=== PATIENT | female | born 1960 | race Caucasian/White ===

== ENCOUNTER → 2016-11-17 | Outpatient (CLI) | payer BC ==
[2016-11-17 08:35] LABS: CHLORIDE,CL 107 mmol/L (98-110); SODIUM,NA 141 mmol/L (136-146)
--- NOTE | 2016-11-17 08:56 | CR ---
EXAMINATION: Two-view chest (PA and Lateral views). HISTORY: Bronchitis. Comparison: 07/16/2016. FINDINGS: The trachea is midline. The cardiomediastinal silhouette is within normal limits. No pulmonary infil trates, effusions or pneumothorax. There is stable linear discoid atelectasis within the left hemith orax. Median sternotomy and postoperative changes again noted. Osseous structures appear unremarkable. IMPRESSION: Stable chest radiograph.
== END ==
LOC: MW.CHIM 07:46
PROVIDERS: ATTEND Internal Medicine
DX: J20.9 Acute bronchitis, unspecified (principal)
CPT/HCPCS: 36415; 71020; 71020-26; 80053; 85025

== ENCOUNTER 2017-04-30 07:01 | Emergency (ER) | payer BC ==
[2017-04-30] MEDS ORDERED: Hyoscyamine 0.125 MG Tab.SL SL ONE (07:21)
[2017-04-30] MEDS ORDERED: Ketorolac 30 MG/ML SDV IVPUSH ONE (07:24)
[2017-04-30] MEDS ORDERED: Ondansetron 4 MG Tab.DIS PO ONE (07:24)
[2017-04-30] MEDS ORDERED: Sodium Chloride 0.9% 1,000 ML IV ONE (07:26)
--- NOTE | 2017-04-30 07:30 | EDM.PDOC ---
ED HPI GENERAL MEDICAL PROBLEM - General Chief Complaint: Genitourinary Problem Stated Complaint: ABDOMINAL PAIN Time Seen by Provider: 04/30/17 07:11 Source of Information: Reports: Patient History Limitations: Reports: No Limitations - History of Present Illness INITIAL COMMENTS - FREE TEXT/NARRATIVE: HISTORY AND PHYSICAL: History of present illness: [49-year-old female on Xarelto for heart valve now presents emergency department complaining of left flank pain radiating to her groin. Patient has nausea but no fevers chills sweats or shaking chills. She's had some red tinged urine today. Her pain is intermittent and sometimes severe now improved. Is not worse with movement nor is it improved with position. Normal bowel habits. Patient states she has been compliant with her anticoagulation with Lovenox. Review of systems: As per history of present illness and below otherwise all systems reviewed and negative. Past medical history: As per history of present illness and as reviewed below otherwise noncontributory. Surgical history: As per history of present illness and as reviewed below otherwise noncontributory. Social history: No reported history of drug or alcohol abuse. Family history: As per history of present illness and as reviewed below otherwise noncontributory. Physical exam: Well. Patient no acute distress. Mild left CVA tenderness abdomen completely benign, vital signs unremarkable no pallor HEENT: Atraumatic, normocephalic, pupils reactive, negative for conjunctival pallor or scleral icterus, mucous membranes moist, throat clear, neck supple, nontender, trachea midline. Lungs: Clear to auscultation, breath sounds equal bilaterally, chest nontender. Heart: S1S2, regular, negative for clicks, rubs, or JVD. Abdomen: Soft, nondistended, nontender. Negative for masses or hepatosplenomegaly. Negative for costovertebral tenderness. Pelvis: Stable nontender. Genitourinary: Deferred. Rectal: Deferred. Extremities: Atraumatic, negative for cords or calf pain. Neurovascular unremarkable. Neuro: Awake, alert, oriented. Cranial nerves II through XII unremarkable. Cerebellum unremarkable. Motor and sensory unremarkable throughout. Exam nonfocal. Diagnostics: [CG with renal cysts as well as 2 mm stone proximal left ureter] Therapeutics: [] Impression: [] Plan: [Signs and symptoms consistent with ureteral colic in patient with very mild gross hematuria. Patient stable on reevaluation. CT shows tumor 2 mm stone proximal left ureter. Urinalysis positive for small amount of gross blood with red tinged urine however it was very watery and not shimon blood in any way. Patient's involvement. 0.9. Case discussed at length with Dr. Lori martinez urologist who is aware the history and findings including patient being anticoagulated on Xarelto for her heart valve, and all CAT scan findings regarding her kidneys. Dr. Campos recommends that it's appropriate to continue the patient's anticoagulation without change to protect her in setting of her heart valve and he feels outpatient follow-up is appropriate with Flomax prescription. She will follow up with him in the office Wednesday or early next week. Patient agrees and is comfortable with outpatient follow-up. She is aware to return immediately for any signs of evolving infectious signs including fever chills sweats or shaking chills. Patient is also aware to return immediately if her hematuria worsens trending towards gross hematuria, if she feels lightheaded or like she might faint, or for any new severe or worsening symptoms. Definitive disposition and diagnosis as appropriate pending reevaluation and review of above. Bilateral Lower Pelvic Pain Score (Numeric/FACES): 9 - Related Data Allergies Allergy/AdvReac Type Severity Reaction Status Date / Time No Known Allergies Allergy Verified 04/30/17 07:14 Home Meds: Home Meds Acetaminophen [Acetaminophen 8 Hour] 650 mg PO Q6HR PRN 07/06/16 [History] Aspirin 81 mg PO DAILY 07/06/16 [History] Flecainide Acetate 50 mg PO Q12HR 07/06/16 [History] Losartan Potassium 25 mg PO DAILY 07/06/16 [History] Metoprolol Succinate 50 mg PO DAILY 07/06/16 [History] Rivaroxaban [Xarelto] 20 mg PO WITHDINNER 07/06/16 [History] Hydrocodone/Acetaminophen [Montague 5-325 Tablet] 1 each PO Q4H PRN #16 tablet [Rx] Past Medical History HEENT History: Reports: None Respiratory History: Reports: None Gastrointestinal History: Reports: None Genitourinary History: Reports: None 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 Musculoskeletal History: Reports: None Neurological History: Reports: None Psychiatric History: Reports: None Endocrine/Metabolic History: Reports: None Hematologic History: Reports: None Immunologic History: Reports: None Oncologic (Cancer) History: Reports: None Dermatologic History: Reports: None - Past Surgical History Cardiovascular Surgical History: Reports: Other (See Below) Female Surgical History: Reports: Tubal Ligation Musculoskeletal Surgical History: Reports: Arthroscopic Knee Social & Family History - Family History Family Medical History: Noncontributory HEENT: Reports: None Cardiac: Reports: None Respiratory: Reports: None GI: Reports: None : Reports: None OBGYN: Reports: None Musculoskeletal: Reports: None Neurological: Reports: None Psychiatric: Reports: None Endocrine/Metabolic: Reports: None Hematologic: Reports: None Immunologic: Reports: None Dermatologic: Reports: None Oncologic: Reports: None - Tobacco Use Smoking Status *Q: Never Smoker Second Hand Smoke Exposure: No - Caffeine Use Caffeine Use: Reports: None - Recreational Drug Use Recreational Drug Use: No ED ROS GENERAL - Review of Systems Review Of Systems: See Below (History of present illness) ED EXAM, GI/ABD - Physical Exam Exam: See Below (History of present illness) Course - Vital Signs Last Recorded V/S: Last Vital Signs Temp 36.3 C 04/30/17 09:02 Pulse 63 04/30/17 10:27 Resp 12 04/30/17 10:27 BP 150/64 H 04/30/17 10:27 Pulse Ox 98 04/30/17 10:27 - Orders/Labs/Meds Orders: Active Orders 24 hr Category Date Time Status Abdomen Pelvis w Cont [CT] Stat Exams 04/30/17 07:20 Taken Peripheral IV Insertion Adult [OM.PC] Stat Oth 04/30/17 07:20 Ordered Labs: Laboratory Tests 04/30/17 04/30/17 04/30/17 Range/Units 07:50 07:52 07:52 WBC 9.59 (4.0-11.0) K/uL RBC 4.43 (4.30-5.90) M/uL Hgb 12.9 (12.0-16.0) g/dL Hct 39.5 (36.0-46.0) % MCV 89.2 (80.0-98.0) fL MCH 29.1 (27.0-32.0) pg MCHC 32.7 (31.0-37.0) g/dL RDW Std Deviation 41.8 (28.0-62.0) fl RDW Coeff of Ranjan 13 (11.0-15.0) % Plt Count 225 (150-400) K/uL MPV 9.70 (7.40-12.00) fL Neut % (Auto) 83.2 H (48.0-80.0) % Lymph % (Auto) 11.1 L (16.0-40.0) % [place] % (Auto) 4.5 (0.0-15.0) % Eos % (Auto) 0.9 (0.0-7.0) % Baso % (Auto) 0.3 (0.0-1.5) % Neut # (Auto) 8.0 H (1.4-5.7) K/uL Lymph # (Auto) 1.1 (0.6-2.4) K/uL [place] # (Auto) 0.4 (0.0-0.8) K/uL Eos # (Auto) 0.1 (0.0-0.7) K/uL Baso # (Auto) 0.0 (0.0-0.1) K/uL Nucleated RBC % 0.0 /100WBC Nucleated RBCs # 0 K/uL Sodium 139 (136-146) mmol/L Potassium 4.1 (3.5-5.1) mmol/L Chloride 105 (98-110) mmol/L Carbon Dioxide 24 (21-31) mmol/L BUN 18 (6.0-23.0) mg/dL Creatinine 0.9 (0.6-1.5) mg/dL Est Cr Clr Drug Dosing 63.78 mL/min Estimated GFR (MDRD) > 60.0 ml/min Glucose 144 H (60-110) mg/dL Calcium 9.4 (8.8-10.8) mg/dL Total Bilirubin 0.3 (0.1-1.5) mg/dL AST 14 (5-40) IU/L ALT 13 (8-54) IU/L Alkaline Phosphatase 79 (40-150) Total Protein 7.8 (6.0-8.0) g/dL Albumin 4.3 (3.5-5.0) g/dL Globulin 3.5 (2.0-3.5) g/dL Albumin/Globulin Ratio 1.2 L (1.3-2.8) Lipase 10 (7-80) U/L Urine Color RED Urine Appearance SLT CLOUDY Urine pH 5.5 (5.0-8.0) Ur Specific [place] 1.015 (1.001-1.035) Urine Protein NEGATIVE (NEGATIVE) mg/dL Urine Glucose (UA) NEGATIVE (NEGATIVE) mg/dL Urine Ketones NEGATIVE (NEGATIVE) mg/dL Urine Occult Blood LARGE H (NEGATIVE) Urine Nitrite NEGATIVE (NEGATIVE) Urine Bilirubin NEGATIVE (NEGATIVE) Urine Urobilinogen 0.2 (<2.0) EU/dL Ur Leukocyte Esterase NEGATIVE (NEGATIVE) Urine RBC TOO NUMBEROUS TO CT H (0-2/HPF) Urine WBC 1-2 (0-5/HPF) Ur Epithelial Cells RARE (NONE-FEW) Urine Bacteria RARE (NEGATIVE) Meds: Medications Discontinued Medications Generic Name Dose Route Start Last Admin Trade Name Freq PRN Reason Stop Dose Admin Hyoscyamine 0.125 mg 04/30/17 07:21 04/30/17 07:38 Hyomax-Sl SL 04/30/17 07:22 0.125 mg ONETIME ONE Administration Sodium Chloride 1,000 mls @ 999 mls/hr 04/30/17 07:26 04/30/17 07:51 Normal Saline IV 04/30/17 08:26 999 mls/hr STAT ONE Administration Iopamidol 100 ml 04/30/17 08:56 04/30/17 08:56 Isovue Multipack-370 (76%) IVPUSH 04/30/17 08:57 100 ml ONETIME STA Administration Ketorolac Tromethamine 30 mg 04/30/17 07:24 04/30/17 07:45 Toradol IVPUSH 04/30/17 07:25 30 mg ONETIME ONE Administration Ondansetron HCl 4 mg 04/30/17 07:24 04/30/17 07:38 Zofran Odt PO 04/30/17 07:25 4 mg ONETIME ONE Administration Departure - Departure Time of Disposition: 10:41 Disposition: Home, Self-Care 01 Condition: Good Clinical Impression: Gross hematuria, Left ureteral stone, Ureteral colic - Discharge Information Prescriptions: Hydrocodone/Acetaminophen [Montague 5-325 Tablet] 1 each PO Q4H PRN #16 tablet PRN Reason: Breakthrough pain Instructions: Kidney Stones, [id number] Referrals: Tomas Oh MD [Primary Care Provider] - Forms: ED Department Discharge Additional Instructions: You have a 2 mm stone in your left ureter. It is likely that this will intermittently cause pain likely of varying intensity until it passes into your bladder. Take Flomax once a day as directed until you pass the stone. Take [place] one by mouth every 6 hours as needed for pain. You also have gross hematuria as discussed. Again, "gross "hematuria means your urine is red from mild bleeding. As we discussed this is concerning because you were on Xarelto but at this point Dr. Campos the urologist feels it's appropriate to continue her anticoagulation therapy as you're blood in the urine is very dilute in your hemoglobin is unremarkable at 12.9. Follow-up with Dr. Campos on Wednesday. Follow -up with your DrKrupa in one day as well. Return immediately for new severe or worsening symptoms specifically for uncontrolled pain, uncontrolled vomiting, worsening discomfort especially in the setting of fevers, or worsening bleeding , especially with lightheadedness or feeling like he might faint. - My Orders Last 24 Hours: My Active Orders 04/30/17 07:20 Abdomen Pelvis w Cont [CT] Stat Peripheral IV Insertion Adult [OM.PC] Stat - Assessment/Plan Last 24 Hours: My Active Orders 04/30/17 07:20 Abdomen Pelvis w Cont [CT] Stat Peripheral IV Insertion Adult [OM.PC] Stat
[2017-04-30 08:24] LABS: CHLORIDE,CL 105 mmol/L (98-110); SODIUM,NA 139 mmol/L (136-146)
[2017-04-30] MEDS ORDERED: Iopamidol 755 MG/ML 500 ML Multipack Bottle IVPUSH STA (08:56)
[2017-04-30 10:54] VITALS: BP 144/54
--- NOTE | 2017-04-30 11:05 | CT ---
EXAM DATE: 04/30/17 PATIENT'S AGE: 57 Patient: KIKE RINCON Facility: [place], [place] Site . Site : 1960 Study: CT Abdomen/Pelvis [id number]/29/2017 9:09:14 AM Ordering Physician: Dejon Vences Final Report: INDICATION: Lower abdominal pain. TECHNIQUE: Contiguous axial images were acquired through the abdomen and pelvis after the intravenous administration of 100 mL of Isovue. Sagittal and coronal reconstructions. COMPARISON: CT from April 02, 2013. FINDINGS: Visualized lower chest: Prior median sternotomy. Heart size is within normal limits. No pericardial effusion. Lung bases are clear. Bilateral breast implants. Abdomen and pelvis: The liver is unremarkable. Cholecystectomy. No significant bile duct dilatation. Normal size spleen. Pancreas is normal. No adrenal nodule or mass. There are bilateral parapelvic renal cysts, left more than right. There is a 2 mm intrarenal stone on the left on axial image 54. In the proximal left ureter on axial image 86, there is a 2 mm stone which results in hydronephrosis, the degree of which is difficult to determine the size and number of parapelvic cysts. There is asymmetric renal function with slightly diminished enhancement of the left kidney compared to the right, and mild perinephric fat stranding. Normal caliber abdominal aorta. No abnormally dilated bowel to suggest obstruction and no abnormal bowel wall thickening. Normal appendix. No free air. Unremarkable urinary bladder. Uterus is present. No adnexal mass. Bones: No acute abnormality. Degenerative changes are seen at the lumbosacral junction. IMPRESSION: 1. There is a 2 mm stone seen in the proximal left ureter with obstructive uropathy as described above. 2. Other findings as noted. Dictated by Jerry Schultz MD @ 04/30/2017 9:29:27 AM Dictated by: Jerry Schultz MD @ 04/30/2017 09:29:42 (Electronic Signature) Report Signed by Proxy. [facility] C[facility]ERSa[facility]
== END 2017-04-30 11:00 | disposition home or self-care (01) ==
LOC: MW.ED 07:01
DX: N13.2 Hydronephrosis with renal and ureteral calculous obstruction (principal); R31.0 Gross hematuria; Z98.51 Tubal ligation status; Z79.82 Long term (current) use of aspirin; Z79.899 Other long term (current) drug therapy
CPT/HCPCS: 36415; 74177; 80053; 81001; 83690; 85025; 96361; 96374; 99284; A9270; J1885; J7040; Q9967; 99283

== ENCOUNTER 2018-12-10 19:49 | Emergency (ER) | payer BC ==
[2018-12-10] MEDS ORDERED: Gelatin Sponge,Absorbable 12-7 mm Sponge TOP ONE (19:50)
--- NOTE | 2018-12-10 20:13 | EDM.PDOC ---
ED HPI GENERAL MEDICAL PROBLEM - General Chief Complaint: Skin Complaint Stated Complaint: SKIN TAG ON BACK Time Seen by Provider: 12/10/18 20:03 - History of Present Illness INITIAL COMMENTS - FREE TEXT/NARRATIVE: HISTORY AND PHYSICAL: History of present illness: The patient is a 58-year-old female with a history of hypertension and a cardiac arrhythmia for which she takes Xarelto and presents after she scratched a skin tag on her right flank area and made it bleed and she has not been able to get it to stop. She has no systemic complaints of fever chills chest pain shortness of breath abdominal pain and was having a great day at her grandson's birthday democrat when this occurred. Her tried to clean it up and place a dressing on it but he keeps bleeding. She is not having bleeding in other locations such as in her urine stools comes Review of systems: As per history of present illness and below otherwise all systems reviewed and negative. Past medical history: As per history of present illness and as reviewed below otherwise noncontributory. Surgical history: As per history of present illness and as reviewed below otherwise noncontributory. Social history: No reported history of drug or alcohol abuse. Family history: As per history of present illness and as reviewed below otherwise noncontributory. Physical exam: HEENT: Atraumatic, normocephalic, negative for conjunctival pallor or scleral icterus, mucous membranes moist, throat clear, neck supple, nontender, trachea midline. Lungs: Clear to auscultation, breath sounds equal bilaterally, chest nontender. Heart: S1S2, regular rate and rhythm no overt murmurs Abdomen: Soft, nondistended, nontender. NABS Pelvis: Deferred Genitourinary: Deferred. Rectal: Deferred. Extremities: Atraumatic, negative for cords or calf pain. Neurovascular unremarkable. Neuro: Awake, alert, oriented. Cranial nerves II through XII unremarkable. Cerebellum unremarkable. Motor and sensory unremarkable throughout. Exam nonfocal. Skin: Turgor is normal and there are no overt rashes or lesions. At the right flank area just inferior to the posterior ribs there is a small 1 cm area of skin excoriation with a punctate area of oozing. There is no soft tissue swelling ecchymosis or erythema and there is no tenderness. Diagnostics: [] Therapeutics: Surgicel and pressure dressing per nursing Impression: Skin lesion bleeding with history of Xarelto use stable Definitive disposition and diagnosis as appropriate pending reevaluation and review of above. - Related Data Allergies Allergy/AdvReac Type Severity Reaction Status Date / Time No Known Allergies Allergy Verified 04/30/17 07:14 Home Meds: Home Meds Aspirin 81 mg PO DAILY 07/06/16 [History] Flecainide Acetate 50 mg PO Q12HR 07/06/16 [History] Losartan Potassium 25 mg PO DAILY 07/06/16 [History] Metoprolol Succinate 50 mg PO DAILY 07/06/16 [History] Rivaroxaban [Xarelto] 20 mg PO WITHDINNER 07/06/16 [History] Past Medical History HEENT History: Reports: None Cardiovascular History: Reports: Afib, Hypertension Respiratory History: Reports: None Gastrointestinal History: Reports: None Genitourinary History: Reports: None 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 Musculoskeletal History: Reports: None Neurological History: Reports: None Psychiatric History: Reports: None Endocrine/Metabolic History: Reports: Obesity/BMI 30+ Hematologic History: Reports: None Immunologic History: Reports: None Oncologic (Cancer) History: Reports: None Dermatologic History: Reports: None - Infectious Disease History Infectious Disease History: Reports: Chicken Pox - Past Surgical History Head Surgeries/Procedures: Reports: None Cardiovascular Surgical History: Reports: Cardiac Ablation, Coronary Artery Bypass Female Surgical History: Reports: Tubal Ligation Musculoskeletal Surgical History: Reports: Arthroscopic Knee Social & Family History - Family History Family Medical History: Noncontributory HEENT: Reports: None Cardiac: Reports: None Respiratory: Reports: None GI: Reports: None : Reports: None OBGYN: Reports: None Musculoskeletal: Reports: None Neurological: Reports: None Psychiatric: Reports: None Endocrine/Metabolic: Reports: None Hematologic: Reports: None Immunologic: Reports: None Dermatologic: Reports: None Oncologic: Reports: None - Tobacco Use Smoking Status *Q: Never Smoker - Caffeine Use Caffeine Use: Reports: None - Recreational Drug Use Recreational Drug Use: No ED ROS GENERAL - Review of Systems Review Of Systems: ROS reveals no pertinent complaints other than HPI. ED EXAM, SKIN/RASH Exam: See Below (See dictation) Course - Vital Signs Last Recorded V/S: Last Vital Signs Temp 35.9 C 12/10/18 19:51 Pulse 74 12/10/18 19:51 Resp 18 12/10/18 19:51 BP 199/76 H 12/10/18 19:51 Pulse Ox 94 L 12/10/18 19:51 - Orders/Labs/Meds Orders: Active Orders 24 hr Category Date Time Status Communication Order [RC] STAT Care 12/10/18 20:09 Ordered Departure - Departure Time of Disposition: 20:12 Disposition: Home, Self-Care 01 Condition: Good Clinical Impression: Skin lesion of back - Discharge Information Referrals: Tomas Oh MD [Primary Care Provider] - Additional Instructions: The following information is given to patients seen in the emergency department who are being discharged to home. This information is to outline your options for follow-up care. We provide all patients seen in our emergency department with a follow-up referral. The need for follow-up, as well as the timing and circumstances, are variable depending upon the specifics of your emergency department visit. If you don't have a primary care physician on staff, we will provide you with a referral. We always advise you to contact your personal physician following an emergency department visit to inform them of the circumstance of the visit and for follow-up with them and/or the need for any referrals to a consulting specialist. The emergency department will also refer you to a specialist when appropriate. This referral assures that you have the opportunity for followup care with a specialist. All of these measure are taken in an effort to provide you with optimal care, which includes your followup. Under all circumstances we always encourage you to contact your private physician who remains a resource for coordinating your care. When calling for followup care, please make the office aware that this follow-up is from your recent emergency room visit. If for any reason you are refused follow-up, please contact the [facility] emergency department at and ask to speak to the emergency department charge nurse. [facility] Primary care- Internal Medicine and Family [address] [address] Leave the dressing that was placed on by nursing for the next 24-36 hours then remove. Please continue with her home medications and follow-up with a provider in the clinic. Return to ER as needed and as discussed - My Orders Last 24 Hours: My Active Orders 12/10/18 20:09 Communication Order [RC] STAT - Assessment/Plan Last 24 Hours: My Active Orders 12/10/18 20:09 Communication Order [RC] STAT
[2018-12-10 20:52] VITALS: BP 170/72
== END 2018-12-10 20:35 | disposition home or self-care (01) ==
LOC: MW.ED 19:49
DX: L98.9 Disorder of the skin and subcutaneous tissue, unspecified (principal); I48.91 Unspecified atrial fibrillation; I10 Essential (primary) hypertension; Z79.01 Long term (current) use of anticoagulants; Z79.899 Other long term (current) drug therapy
CPT/HCPCS: 99283

== ENCOUNTER 2020-07-13 08:32 | Emergency (ER) | payer BC ==
--- NOTE | 2020-07-13 08:33 | EDM.PDOC ---
ED HPI GENERAL MEDICAL PROBLEM - General Stated Complaint: BP HEADACHE Time Seen by Provider: 07/13/20 08:32 Source of Information: Reports: Patient History Limitations: Reports: No Limitations - History of Present Illness INITIAL COMMENTS - FREE TEXT/NARRATIVE: 60-year-old female past medical history hypertension, heart valve repair on Xarelto, kidney stones presents for concern for high blood pressure. Patient notes that for the last week she has been checking her blood pressure at home and it has been high. She cannot recall the top number but notes that the bottom number has been 103, 105. She notes that when she went to the dentist she was told that her blood pressure was high and she should follow-up with your primary care physician. Patient also notes a dull headache for the last 3 days. She denies sudden onset headache, worst headache of life, thunderclap onset. She denies any one-sided body weakness, generalized weakness, changes in vision, numbness or tingling, slurred speech, difficulty with word finding. She notes that she recently saw her physician that manages her heart valve repair in [place] and had blood work and an EKG which were all normal. She denies any ch est pain, shortness of breath, changes in urinary habits. headache Pain Score (Numeric/FACES): 4 - Related Data Allergies Allergy/AdvReac Type Severity Reaction Status Date / Time No Known Allergies Allergy Verified 07/13/20 08:49 Home Meds: Home Meds Aspirin 81 mg PO DAILY 07/06/16 [History] Flecainide Acetate 50 mg PO Q12HR 07/06/16 [History] Losartan Potassium 25 mg PO DAILY 07/06/16 [History] Metoprolol Succinate 50 mg PO DAILY 07/06/16 [History] Rivaroxaban [Xarelto] 20 mg PO WITHDINNER 07/06/16 [History] Past Medical History HEENT History: Reports: None Cardiovascular History: Reports: Afib, Hypertension Respiratory History: Reports: None Gastrointestinal History: Reports: None Genitourinary History: Reports: None INSIDE SALES MANAGER History: Reports: None Other INSIDE SALES MANAGER History: Tubal Ligation Musculoskeletal History: Reports: None Neurological History: Reports: None Psychiatric History: Reports: None Endocrine/Metabolic History: Reports: Obesity/BMI 30+ Hematologic History: Reports: None Immunologic History: Reports: None Oncologic (Cancer) History: Reports: None Dermatologic History: Reports: None - Infectious Disease History Infectious Disease History: Reports: Chicken Pox - Past Surgical History Head Surgeries/Procedures: Reports: None Cardiovascular Surgical History: Reports: Cardiac Ablation, Coronary Artery Bypass Female Surgical History: Reports: Tubal Ligation Musculoskeletal Surgical History: Reports: Arthroscopic Knee Social & Family History - Family History Family Medical History: No Pertinent Family History HEENT: Reports: None Cardiac: Reports: None Respiratory: Reports: None GI: Reports: None : Reports: None OBGYN: Reports: None Musculoskeletal: Reports: None Neurological: Reports: None Psychiatric: Reports: None Endocrine/Metabolic: Reports: None Hematologic: Reports: None Immunologic: Reports: None Dermatologic: Reports: None Oncologic: Reports: None - Caffeine Use Caffeine Use: Reports: None ED ROS GENERAL - Review of Systems Review Of Systems: Comprehensive ROS is negative, except as noted in HPI. ED EXAM, GENERAL - Physical Exam Exam: See Below Exam Limited By: No Limitations General Appearance: Alert, WD/WN, No Apparent Distress Eye Exam: Bilateral Eye: EOMI, PERRL Ears: Normal External Exam Nose: Normal Inspection Throat/Mouth: Normal Voice, No Airway Compromise Head: Atraumatic, Normocephalic Neck: Normal Inspection Respiratory/Chest: No Respiratory Distress, Lungs Clear, Normal Breath Sounds, No Accessory Muscle Use Cardiovascular: Normal Peripheral Pulses, Regular Rate, Rhythm, No Edema Extremities: Normal Inspection Neurological: Alert, Oriented, CN II-XII Intact, Normal Cognition, Normal Gait, No Motor/Sensory Deficits Psychiatric: Normal Affect, Normal Mood Skin Exam: Warm, Dry, Intact, Normal Color Course - Vital Signs Last Recorded V/S: Last Vital Signs Temp 96.7 F L 07/13/20 08:38 Pulse 74 07/13/20 08:38 Resp 17 07/13/20 08:38 BP 187/73 H 07/13/20 08:38 Pulse Ox 95 07/13/20 08:38 - Orders/Labs/Meds Orders: Active Orders 24 hr Category Date Time Status cloNIDine [Catapres] Med 07/13/20 08:54 Once 0.1 mg PO ONETIME ONE - Re-Assessments/Exams Free Text/Narrative Re-Assessment/Exam: 07/13/20 08:57 Suspicion for intracranial hemorrhage, stroke, renal dysfunction is very low. I did offer the patient blood work to check renal function as well as an EKG, but she declined considering she just had these test performed roughly 1 week ago. Will give clonidine 0.1 mg to see if it helps with patient's headache. She already took Tylenol. Patient has good follow-up with a primary care physician who she states she can see next week. I explained to patient that while her blood pressure is elevated, I think she would be better served following up with her primary care physician who can follow-up and institute a new medication regimen. I explained the clonidine is today just to get her blood pressure temporarily down to see if it helps with her headache but is not a good long- term option for managing blood pressure in this patient. I explained return precautions at length including a blood pressure greater than 220 systolic or 120 diastolic. Return precautions also include sudden onset headache, chest pain, shortness of breath, decreased urination, and anuria. Departure - Departure Time of Disposition: 08:58 Disposition: Home, Self-Care 01 Condition: Good Clinical Impression: Hypertension Qualifiers: Hypertension type: essential hypertension Qualified Code(s): I10 - Essential (primary) hypertension - Discharge Information Instructions: Hypertension, Adult, Preventing Hypertension Additional Instructions: Your blood pressure today was 187/73. Normal blood pressure is 120/80. Acceptable but high blood pressure is 130/85. Do note that blood pressure noa nges dynamically throughout the day depending on what you are doing, your stress level, any caffeine or stimulant use, alcohol use, salt intake, diet, physical activity. I recommend that you follow-up with your primary care physician to discuss your high blood pressure. I would keep a log of your blood pressure over the next several days taking it when you are relaxed and before having any coffee or caffeine. Ideally he could take your blood pressure once in the morning, once in the afternoon, and once before bed. This will give your primary care physician an idea of what your blood pressure is doing throughout the day. If you develop chest pain, difficulty breathing, thunderclap onset headache (sudden onset worst headache of life), changes in your vision, slurred speech, difficulty finding her words, difficulty moving one half of your body you should return to the emergency department immediately as these can be signs of serious illness. The following information is given to patients seen in the emergency department who are being discharged to home. This information is to outline your options for follow-up care. We provide all patients seen in our emergency department with a follow-up referral. The need for follow-up, as well as the timing and circumstances, are variable depending upon the specifics of your emergency department visit. If you don't have a primary care physician on staff, we will provide you with a referral. We always advise you to contact your personal physician following an emergency department visit to inform them of the circumstance of the visit and for follow-up with them and/or the need for any referrals to a consulting specialist. The emergency department will also refer you to a specialist when appropriate. This referral assures that you have the opportunity for follow-up care with a specialist. All of these measure are taken in an effort to provide you with optimal care, which includes your follow-up. Under all circumstances we always encourage you to contact your private physician who remains a resource for coordinating your care. When calling for follow-up care, please make the office aware that this follow-up is from your recent emergency room visit. If for any reason you are refused follow-up, please contact the [facility] Emergency Department at and asked to speak to the emergency department charge nurse. Please follow up with your primary care physician. If you do not have a primary care physician, see below: [facility] [address] [place] [id number] [facility] [address] [place] [id number] Sepsis Event Note (ED) - Focused Exam Vital Signs: Vital Signs Temp Pulse Resp BP Pulse Ox 07/13/20 08:38 96.7 F L 74 17 187/73 H 95 - My Orders Last 24 Hours: My Active Orders 07/13/20 08:54 cloNIDine [Catapres] 0.1 mg PO ONETIME ONE - Assessment/Plan Last 24 Hours: My Active Orders 07/13/20 08:54 cloNIDine [Catapres] 0.1 mg PO ONETIME ONE
[2020-07-13] MEDS ORDERED: cloNIDine 0.1 MG Tab PO ONE (08:54)
[2020-07-13 09:31] VITALS: BP 172/65; PULSE 62
== END 2020-07-13 09:39 | disposition home or self-care (01) ==
LOC: MW.ED 08:32
DX: I10 Essential (primary) hypertension (principal); I48.91 Unspecified atrial fibrillation; E66.9 Obesity, unspecified; Z68.41 Body mass index [BMI] 40.0-44.9, adult; Z79.01 Long term (current) use of anticoagulants; Z79.899 Other long term (current) drug therapy; Z79.82 Long term (current) use of aspirin
CPT/HCPCS: 99283; A9270

== ENCOUNTER 2021-07-13 17:44 | Emergency (ER) | payer BC ==
--- NOTE | 2021-07-13 18:47 | EDM.PDOC ---
ED HPI GENERAL MEDICAL PROBLEM - General Chief Complaint: Respiratory Problem Stated Complaint: COUGH Time Seen by Provider: 07/13/21 18:18 Source of Information: Reports: Patient History Limitations: Reports: No Limitations - History of Present Illness INITIAL COMMENTS - FREE TEXT/NARRATIVE: HISTORY AND PHYSICAL: History of present illness: Patient is a 61-year-old female who presents to the emergency room with complaints of cough x 2 weeks. States she is producing thick yellow sputum. Patient denies any fever, chills, headache, change in vision, syncope or near syncope. Denies any chest pain, back pain, or shortness of breath. Denies any GI or symptoms. No recent travel or sick contacts. Review of systems: As per history of present illness and below otherwise all systems reviewed and negative. Past medical history: As per history of present illness and as reviewed below otherwise noncontributory. Surgical history: As per history of present illness and as reviewed below otherwise noncontributory. Social history: See social history for further information Family history: As per history of present illness and as reviewed below otherwise noncontributo ry. Physical exam: General: Well developed and well nourished 61 year old female. Alert and orientated x 3. Nontoxic in appearance and in no acute distress. Vital signs are stable and have been reviewed by me. Nursing notes were reviewed. HEENT: Atraumatic, normocephalic, pupils equal and reactive bilaterally, negative for conjunctival pallor or scleral icterus, mucous membranes moist, TMs normal bilaterally, throat clear, neck supple, nontender, trachea midline. No drooling or trismus noted. No meningeal signs. No hot potato voice noted. Lungs: Diminished to auscultation bilaterally. No wheezes, rales, or rhonchi. Chest nontender. Normal work of breathing, no accessory muscles used. Heart: S1S2, regular rate and rhythm without overt murmur, gallops, or rubs. No JVD. No peripheral edema Abdomen: Soft, nondistended, nontender. Skin: Intact, warm, dry. No lesions or rashes noted. Hematologic: No petechiae or purpra. Mucosa appropriate color and normal nail bed color and refill. Extremities: Atraumatic, moves all extremities per self without difficulty or deficits, negative for cords or calf pain. Neurovascular unremarkable. Neuro: Awake, alert, oriented. Cranial nerves II through XII unremarkable. Cerebellum unremarkable. Motor and sensory unremarkable throughout. Exam nonfocal. Psychiatric: Mood and affect are appropriate. Normal thought process. Answering questions appropriately. Please note that the patient was seen and evaluated during the 2019 SARS-CoV-2 novel coronavirus pandemic period. Community viral transmission is ongoing at time of this encounter and the emergency department is operating under pandemic response procedures. Medical Decision Making: Negative COVID-19 and influenza screening. Chest x-ray shows no acute cardiopulmonary abnormality. Stable mild cardiomegaly. Reviewing the chest x- ray myself it does look hazy in the left lower lobe, unable to see costovertebral angles. CURB-65: Low risk group. due to length of symptoms I am going to treat with doxycycline. And provide proair inhaler with education and spacer. I have talked with the patient about today's findings, in addition to providing specific details for plan of care. Reassessment at the time of disposition demonstrates that the patient is in no acute distress. The patient is stable for discharge, counseling was provided and we discussed in great detail signs and symptoms that would prompt them to return to the Emergency Department. Medication, follow up and supportive care measures were reviewed and discussed. Voices understanding and is agreeable to plan of care. Denies any further questions or concerns at this time. Diagnostics: Chest x-ray, COVID-19/influenza Therapeutics: Doxycycline Prescription: Doxycycline Impression: Bronchitis Plan: 1. You were evaluated today on an emergent basis. Your COVID and influenza screening are negative. Chest x-ray looks like you have an early pneumonia in the left lower lobe. Take the antibiotic as prescribed. If your symptoms should worsen, new symptoms develop or any of the signs and symptoms we discussed should arise please return to the emergency room or call 911 (if needed). 2. You can alternate Tylenol and ibuprofen as needed for pain and fever management. 3. We encourage you to follow up with your primary care provider and/or recommended specialist in the next few days for re-evaluation and further care/management. Definitive disposition and diagnosis as appropriate pending reevaluation and review of above. - Related Data Allergies Allergy/AdvReac Type Severity Reaction Status Date / Time No Known Allergies Allergy Verified 07/13/20 08:49 Home Meds: Home Meds Aspirin 81 mg PO DAILY 07/06/16 [History] Flecainide Acetate 150 PO Q12HR 07/06/16 [History] Losartan Potassium 50 mg PO DAILY 07/06/16 [History] Metoprolol Succinate 50 mg PO DAILY 07/06/16 [History] Rivaroxaban [Xarelto] 20 mg PO WITHDINNER 07/06/16 [History] Doxycycline [Vibra-Tabs] 100 mg PO BID 7 Days #14 tab 07/13/21 [Rx] predniSONE [Prednisone] 40 mg PO DAILY 4 Days #8 tablet 07/13/21 [Rx] Past Medical History HEENT History: Reports: None Cardiovascular History: Reports: Afib, Hypertension Respiratory History: Reports: None Gastrointestinal History: Reports: None Genitourinary History: Reports: None AD TRAFFICKER History: Reports: None Other AD TRAFFICKER History: Tubal Ligation Musculoskeletal History: Reports: None Neurological History: Reports: None, Other (See Below) Other Neuro History: "couple of strokes" Psychiatric History: Reports: None Endocrine/Metabolic History: Reports: Obesity/BMI 30+ Hematologic History: Reports: None Immunologic History: Reports: None Oncologic (Cancer) History: Reports: None Dermatologic History: Reports: None - Infectious Disease History Infectious Disease History: Reports: Chicken Pox - Past Surgical History Head Surgeries/Procedures: Reports: None HEENT Surgical History: Reports: None Cardiovascular Surgical History: Reports: Cardiac Ablation, Coronary Artery Bypass Other Cardiovascular Surgeries/Procedures: Valve repair GI Surgical History: Reports: Cholecystectomy Female Surgical History: Reports: Tubal Ligation Endocrine Surgical History: Reports: None Neurological Surgical History: Reports: None Musculoskeletal Surgical History: Reports: Arthroscopic Knee Oncologic Surgical History: Reports: None Dermatological Surgical History: Reports: None Social & Family History - Family History Family Medical History: No Pertinent Family History HEENT: Reports: None Cardiac: Reports: None Respiratory: Reports: None GI: Reports: None : Reports: None OBGYN: Reports: None Musculoskeletal: Reports: None Neurological: Reports: None Psychiatric: Reports: None Endocrine/Metabolic: Reports: None Hematologic: Reports: None Immunologic: Reports: None Dermatologic: Reports: None Oncologic: Reports: None - Caffeine Use Caffeine Use: Reports: Soda ED ROS GENERAL - Review of Systems Review Of Systems: Comprehensive ROS is negative, except as noted in HPI. ED EXAM, GENERAL - Physical Exam Exam: See Below (See dictation) Course - Vital Signs Last Recorded V/S: Last Vital Signs Temp 98.4 F 07/13/21 19:04 Pulse 63 07/13/21 20:31 Resp 19 07/13/21 20:31 BP 195/68 H 07/13/21 20:31 Pulse Ox 95 07/13/21 20:31 - Orders/Labs/Meds Orders: Active Orders 24 hr Category Date Time Status Chest 1V Frontal [CR] Stat Exams 07/13/21 19:03 Taken Labs: Laboratory Tests 07/13/21 Range/Units 18:39 Influenza Type A RNA NEGATIVE (NEGATIVE) Influenza Type B RNA NEGATIVE (NEGATIVE) SARS-CoV-2 RNA ([facility]) NEGATIVE (NEGATIVE) Meds: Medications Discontinued Medications Generic Name Dose Route Start Last Admin Trade Name Freq PRN Reason Stop Dose Admin Albuterol 1 gm 07/13/21 20:06 07/13/21 20:15 Albuterol 8 Gm Inhaler INH 07/13/21 20:07 2 puff ONETIME ONE Administration Doxycycline Hyclate 100 mg 07/13/21 19:28 07/13/21 20:02 Doxycycline 100 Mg Cap PO 07/13/21 19:29 100 mg ONETIME ONE Administration Guaifenesin/Codeine Phosphate 10 ml 07/13/21 20:06 07/13/21 20:15 Codeine/Guaifenesin 10-100 Mg/5 Ml Syrup 5 Ml Cup PO 07/13/21 20:07 10 ml ONETIME ONE Administration Departure - Departure Time of Disposition: 19:33 Disposition: Home, Self-Care 01 Clinical Impression: Bronchitis - Discharge Information Prescriptions: predniSONE [Prednisone] 40 mg PO DAILY 4 Days #8 tablet Doxycycline [Vibra-Tabs] 100 mg PO BID 7 Days #14 tab Instructions: Acute Bronchitis, Adult, [id number] Referrals: PCP,None [Primary Care Provider] - Forms: ED Department Discharge Additional Instructions: The following information is given to patients seen in the emergency department who are being discharged to home. This information is to outline your options for follow-up care. We provide all patients seen in our emergency department with a follow-up referral. The need for follow-up, as well as the timing and circumstances, are variable depending upon the specifics of your emergency department visit. If you don't have a primary care physician on staff, we will provide you with a referral. We always advise you to contact your personal physician following an emergency department visit to inform them of the circumstance of the visit and for follow-up with them and/or the need for any referrals to a consulting specialist. The emergency department will also refer you to a specialist when appropriate. This referral assures that you have the opportunity for follow-up care with a specialist. All of these measure are taken in an effort to provide you with optimal care, which includes your follow-up. Under all circumstances we always encourage you to contact your private physician who remains a resource for coordinating your care. When calling for follow-up care, please make the office aware that this follow-up is from your recent emergency room visit. If for any reason you are refused follow-up, please contact the [facility] Emergency Department at and asked to speak to the emergency department charge nurse. [facility] [address] [place] [address] [place] [address] Thank you for choosing the [facility] emergency department in [place] for your medical needs today. It was a pleasure caring for you. Today you were seen in the emergency department for cough. Your prescription was electronically sent to: [facility] 1. You were evaluated today on an emergent basis. Your COVID and influenza screening are negative. Chest x-ray looks like you have an early pneumonia in the left lower lobe. Take the antibiotic as prescribed. If your symptoms should worsen, new symptoms develop or any of the signs and symptoms we discussed sh ould arise please return to the emergency room or call 911 (if needed). 2. You can alternate Tylenol and ibuprofen as needed for pain and fever management. 3. We encourage you to follow up with your primary care provider and/or recommended specialist in the next few days for re-evaluation and further care/management. Sepsis Event Note (ED) - Focused Exam Vital Signs: Vital Signs Temp Pulse Resp BP Pulse Ox 07/13/21 20:31 63 19 195/68 H 95 07/13/21 20:03 65 16 182/75 H 95 07/13/21 19:04 98.4 F 74 20 195/64 H 94 L - My Orders Last 24 Hours: My Active Orders 07/13/21 19:03 Chest 1V Frontal [CR] Stat - Assessment/Plan Last 24 Hours: My Active Orders 07/13/21 19:03 Chest 1V Frontal [CR] Stat
[2021-07-13 19:25] LABS: CORONAVIRUS COVID-19 NAA NEGATIVE (NEGATIVE); INFLUENZA A NAA NEGATIVE (NEGATIVE); INFLUENZA B NAA NEGATIVE (NEGATIVE)
[2021-07-13] MEDS ORDERED: Doxycycline 100 MG Cap PO ONE (19:28)
[2021-07-13] MEDS ORDERED: Albuterol 8 GM Inhaler INH ONE (20:06)
[2021-07-13] MEDS ORDERED: Codeine/guaiFENesin 10-100 MG/5 ML Syrup 5 ML Cup PO ONE (20:06)
--- NOTE | 2021-07-13 21:15 | CR ---
INDICATION: Cough. TECHNIQUE: Chest 1 view. COMPARISON: Chest radiograph 11/07/2020. FINDINGS: The cardiac silhouette is mildly enlarged, unchanged. Left atrial appendage clip and sternotomy wires noted. There is no focal pulmonary opacity, pleural effusion or pneumothorax. Mild degenerative changes at the acromioclavicular joints. Impression: 1. No acute cardiopulmonary abnormality. 2. Stable mild cardiomegaly. Dictated by Fernanda Zambrano MD @ 07/13/2021 9:13:17 PM (Electronically Signed)
[2021-07-13 22:15] VITALS: BP 195/68; PULSE 63
== END 2021-07-13 20:32 | disposition home or self-care (01) ==
LOC: MW.ED 17:44
DX: J40 Bronchitis, not specified as acute or chronic (principal); I48.91 Unspecified atrial fibrillation; I10 Essential (primary) hypertension; Z79.82 Long term (current) use of aspirin; Z79.01 Long term (current) use of anticoagulants; Z79.899 Other long term (current) drug therapy; Z20.822 Contact with and (suspected) exposure to COVID-19
CPT/HCPCS: 0240U; 71045; 99283; A9270

== ENCOUNTER 2023-03-15 08:39 | Emergency (ER) | payer BC, OTHER ==
[2023-03-15] MEDS ORDERED: Nitroglycerin 0.4 MG Tab.SL SL PRN (09:11)
[2023-03-15 09:23] LABS: BASOPHILS PERCENT AUTO 0.5 % (0.0-1.5); EOSINOPHILS ABSOLUTE AUTO 0.2 K/uL (0.0-0.7); EOSINOPHILS PERCENT AUTO 2.5 % (0.0-7.0); HEMATOCRIT 34.9 % (36.0-46.0); HEMOGLOBIN 11.7 g/dL (12.0-16.0); LYMPHOCYTES ABSOLUTE AUTO 1.2 K/uL (0.6-2.4); LYMPHOCYTES PERCENT AUTO 20.1 % (16.0-40.0); MEAN CORPUSCULAR HEMOGLOBIN 29.5 pg (27.0-32.0); MEAN CORPUSCULAR HGB CONC 33.5 g/dL (31.0-37.0); MEAN CORPUSCULAR VOLUME 87.9 fL (80.0-98.0); MONOCYTES ABSOLUTE AUTO 0.2 K/uL (0.0-0.8); MONOCYTES PERCENT AUTO 3.8 % (0.0-15.0); NEUTROPHILS ABSOLUTE AUTO 4.4 K/uL (1.4-5.7); NEUTROPHILS PERCENT AUTO 73.1 % (48.0-80.0); NRBC ABSOLUTE 0 K/uL; PLATELET COUNT,PLT 180 K/uL (150-400); RED BLOOD CELL COUNT 3.97 M/uL (4.30-5.90); WHITE BLOOD CELL COUNT,WBC 6.07 K/uL (4.0-11.0)
[2023-03-15] MEDS ORDERED: Furosemide 40 MG/4 ML VIAL IVPUSH ONE (09:52)
[2023-03-15 09:53] LABS: A/G RATIO 0.9 (0.9-1.6); ALBUMIN 3.5 g/dL (3.4-5.0); BILIRUBIN TOTAL 0.6 mg/dL (0.2-1.0); CALCIUM 8.2 mg/dL (8.5-10.1); CARBON DIOXIDE,CO2 27.8 mmol/L (21.0-32.0); CREATININE 0.7 mg/dL (0.6-1.0); EST CRCL DRUG DOSING (CG) 76.01 mL/min; MAGNESIUM 1.8 mg/dL (1.8-2.4); POTASSIUM,K 3.1 mmol/L (3.5-5.1); PROTEIN TOTAL,TP 7.2 g/dL (6.4-8.2)
[2023-03-15] MEDS ORDERED: Potassium Chloride 100 ML IV SCH (10:45)
[2023-03-15] MEDS ORDERED: Potassium Chloride 20 MEQ Tab.ER PO ONE (10:53)
[2023-03-15] MEDS ORDERED: Sodium Chloride 0.9% 500 ML IV ONE (11:00)
[2023-03-15 11:32] VITALS: PULSE 60
[2023-03-15 11:49] VITALS: BP 184/87
== END 2023-03-15 11:31 | disposition home or self-care (01) ==
LOC: MW.ED 08:39
DX: I50.9 Heart failure, unspecified (principal); I10 Essential (primary) hypertension; I48.91 Unspecified atrial fibrillation; E66.9 Obesity, unspecified; Z98.890 Other specified postprocedural states; Z68.41 Body mass index [BMI] 40.0-44.9, adult; Z95.1 Presence of aortocoronary bypass graft; Z79.899 Other long term (current) drug therapy
CPT/HCPCS: 36415; 70486; 71046; 80053; 83735; 83880; 85025; 93005; 96374; 99284; A9270; J1940; 93010

== ENCOUNTER 2023-03-17 12:06 | Emergency (ER) | payer BC, OTHER ==
[2023-03-17 13:25] VITALS: BP 180/73; PULSE 58
== END 2023-03-17 13:25 | disposition home or self-care (01) ==
LOC: MW.ED 12:06
DX: I10 Essential (primary) hypertension (principal); I48.91 Unspecified atrial fibrillation; E66.9 Obesity, unspecified; Z68.41 Body mass index [BMI] 40.0-44.9, adult; Z95.1 Presence of aortocoronary bypass graft; Z86.73 Personal history of transient ischemic attack (TIA), and cerebral infarction without residual deficits; Z79.02 Long term (current) use of antithrombotics/antiplatelets; Z79.899 Other long term (current) drug therapy
CPT/HCPCS: 99283